=== PATIENT | male | born 1965 | race Caucasian/White ===

== ENCOUNTER 2017-12-24 11:27 | Emergency (ER) | payer MEDICAID ==
[2017-12-24 14:44] LABS: BASOPHIL % 0.8 % (0-2); PLATELET COUNT 205 x10^3mcL (130-400); RED CELL DISTRIBUTION WIDTH 12.4 % (11.5-14.5)
[2017-12-24 14:50] LABS: CARBON DIOXIDE 28.5 mmol/L (21-32); CHLORIDE SERUM 102 mmol/L (98-107); CREATININE SERUM 0.7 mg/dL (0.7-1.3); GFR1 > 60 mL/min; GLUCOSE SERUM 109 mg/dL (74-106); POTASSIUM SERUM 3.4 mmol/L (3.5-5.1); SODIUM SERUM 139 mmol/L (136-145)
[2017-12-24 14:53] LABS: ALKALINE PHOSPHATASE 56 U/L (46-116); ALT/SGPT 66 U/L (16-63); AMYLASE 84 U/L (25-115); AST/SGOT 29 U/L (15-37); BILIRUBIN TOTAL 0.4 mg/dL (0.20-1.00); LIPASE 319 IU/L (73-393); TOTAL PROTEIN, SERUM 7.3 g/dL (6.4-8.2)
[2017-12-24 15:49] VITALS: BP 142/91
== END 2017-12-24 15:49 | disposition home or self-care (01) ==
LOC: ED 11:27
PROVIDERS: Emergency Medicine
DX: S39.011A Strain of muscle, fascia and tendon of abdomen, initial encounter (principal); I10 Essential (primary) hypertension; X58.XXXA Exposure to other specified factors, initial encounter; Y93.89 Activity, other specified; Y92.89 Other specified places as the place of occurrence of the external cause; Y99.8 Other external cause status
CPT/HCPCS: 83880; J1885; Q0092

== ENCOUNTER 2018-07-28 17:02 | Emergency (ER) | payer MEDICAID ==
[~2018-07-28] VITALS: Ht 167.6 cm; Wt 72.6 kg
[2018-07-28 17:31] VITALS: Ht 167.6 cm; Wt 72.6 kg
[2018-07-28 19:18] VITALS: BP 178/99
== END 2018-07-28 19:18 | disposition home or self-care (01) ==
LOC: ED 17:02
DX: R30.0 Dysuria (principal); I10 Essential (primary) hypertension
CPT/HCPCS: 87491; 87591

== ENCOUNTER 2018-08-24 18:52 | Inpatient (IN) | payer MEDICAID ==
[~2018-08-24] VITALS: Ht 162.6 cm; Wt 68.7 kg
[2018-08-24 20:36] LABS: BASOPHIL % 0.5 % (0-2); PLATELET COUNT 216 x10^3mcL (130-400); RED CELL DISTRIBUTION WIDTH 12.6 % (11.5-14.5)
[2018-08-24 20:41] LABS: CALCIUM 9.7 mg/dL (8.5-10.1); CARBON DIOXIDE 26.6 mmol/L (21-32); CHLORIDE SERUM 102 mmol/L (98-107); GFR1 > 60 mL/min; GLUCOSE SERUM 152 mg/dL (74-106); POTASSIUM SERUM 3.7 mmol/L (3.5-5.1); SODIUM SERUM 139 mmol/L (136-145)
[2018-08-24 20:46] LABS: ALBUMIN 4.4 g/dL (3.4-5.0); ALKALINE PHOSPHATASE 59 U/L (46-116); ALT/SGPT 52 U/L (16-63); AST/SGOT 29 U/L (15-37); BILIRUBIN TOTAL 0.4 mg/dL (0.20-1.00); TOTAL PROTEIN, SERUM 8.2 g/dL (6.4-8.2)
[2018-08-25] MEDS ORDERED: CAPTOPRIL12.5 MG PO (01:31)
[2018-08-25 02:20] LABS: T3 TOTAL 1.07 ng/mL
[2018-08-25 02:35] LABS: MAGNESIUM 2.5 mg/dL (1.8-2.4); PHOSPHOROUS 3.5 mg/dL (2.5-4.9)
[2018-08-25 03:13] LABS: FREE T4 0.87 ng/dL (0.76-1.46); T4(THYROXINE) 6.3 ug/dL (4.7-13.3)
[2018-08-25 03:51] VITALS: Ht 162.6 cm; Wt 68.7 kg
[2018-08-25 04:13] VITALS: BP 127/89
[2018-08-25 06:48] LABS: BASOPHIL % 0.6 % (0-2); PLATELET COUNT 191 x10^3mcL (130-400); RED CELL DISTRIBUTION WIDTH 12.4 % (11.5-14.5)
[2018-08-25 07:44] LABS: microscopic required? NO
[2018-08-25 08:27] LABS: CARBON DIOXIDE 24.8 mmol/L (21-32); CHLORIDE SERUM 104 mmol/L (98-107); CREATININE SERUM 0.7 mg/dL (0.7-1.3); GFR1 > 60 mL/min; GLUCOSE SERUM 109 mg/dL (74-106); MAGNESIUM 2.5 mg/dL (1.8-2.4); PHOSPHOROUS 3.5 mg/dL (2.5-4.9); POTASSIUM SERUM 3.9 mmol/L (3.5-5.1); SODIUM SERUM 138 mmol/L (136-145)
[2018-08-25 09:02] VITALS: BP 116/63
[2018-08-25 09:26] LABS: UA SPECIFIC GRAVITY >=1.030 (1.005-1.035); urine erythrocyte NEGATIVE (NEGATIVE)
[2018-08-25 09:35] LABS: AMPHETAMINE QUAL UR NONE DETECTED (See below)
[2018-08-25] MEDS ORDERED: LIPI10 PO (11:58)
[2018-08-25] MEDS ORDERED: ECO81 PO (11:58)
[2018-08-25 13:10] VITALS: BP 120/67
[2018-08-25 14:42] VITALS: BP 120/67
== END 2018-08-25 15:00 | disposition home or self-care (01) | DRG 48 ==
LOC: ED 18:52 → DU 08-25 01:30
PROVIDERS: Emergency Medicine; Internal Medicine
DX: G90.9 Disorder of the autonomic nervous system, unspecified (principal); N17.0 Acute kidney failure with tubular necrosis; M94.0 Chondrocostal junction syndrome [Tietze]; E78.5 Hyperlipidemia, unspecified; R53.1 Weakness; I10 Essential (primary) hypertension
CPT/HCPCS: 83880; 84439; J1885; J2001; J2060; J2270; J2405; J2765; J3490; Q0092